=== PATIENT | male | born 1965 | race Hispanic/Latino ===

== ENCOUNTER 2025-01-28 20:40 | Emergency (ER) | payer OTHER ==
[2025-01-28] MEDS ORDERED: Tetracaine 0.5% PF 4 ML BOT ONE (21:41)
[2025-01-28] MEDS ORDERED: Fluorescein Opthalmic Strip ONE (21:42)
[2025-01-28] MEDS ORDERED: Erythromycin Base 0.5% Oint 1 GM TUBE ONE (22:06)
== END 2025-01-28 22:13 ==
LOC: CSHERS 20:40
DX: H10.9 Unspecified conjunctivitis (principal); I10 Essential (primary) hypertension; Z79.899 Other long term (current) drug therapy
CPT/HCPCS: 99283